=== PATIENT | male | born 1960 | race Caucasian/White ===

== ENCOUNTER 2016-12-28 20:33 | Emergency (ER) | payer BC ==
[2016-12-28 20:38] VITALS: TEMP 98; BMI 22.6
[2016-12-28 23:27] LABS: BASOPHIL 0.5 % (0-2.0); EOSINOPHIL 4.2 % (0-4.5); MCH 31.6 pg (25.7-33.7); MCHC 34.5 g/dl (32.0-35.9); MEAN CELL VOLUME 91.7 fl (80-96); MEAN PLT VOLUME 8.4 fl (7.5-11.1); NEUTROPHILS 45.3 % (42.8-82.8); PLATELET COUNT 207 K/MM3 (134-434); RDW 12.6 % (11.9-15.9); WHITE BLOOD COUNT 5.5 K/mm3 (4.0-10.0)
--- NOTE | 2016-12-28 23:43 | PDOC ---
History of Present Illness <Makayla Olivas - Last Filed: 12/29/16 00:52> - General History Source: Patient Exam Limitations: No Limitations <Vikki Zepeda - Last Filed: 12/29/16 01:52> - General Chief Complaint: Palpitations Stated Complaint: PALPITATION - History of Present Illness Initial Comments: 12/29/16 00:52 The patient is a 56 year old male, with a significant past medical history of hypertension, who presents to the emergency department with palpitations since noon. He reports feeling a fluttering sensation in his chest. He denies chest pain. He denies taking herbal supplements, drinking caffeine, or ingesting today. He reports having a normal stress test many years ago. He denies chest pain, shortness of breath, headache and dizziness. He denies fever, chills, nausea, vomit, diarrhea and constipation. He denies dysuria, frequency, urgency and hematuria. Allergies: NKDA Past surgical history: none reported Social history: denies tobacco use PCP - none (Makayla Olivas) Past History <Makayla Olivas - Last Filed: 12/29/16 00:52> - Past Medical History HTN: Yes - Suicide/Smoking/Psychosocial Hx Smoking History: Never smoked Have you smoked in the past 12 months: No Hx Alcohol Use: No Substance Use Type: None <Vikki Zepeda - Last Filed: 12/29/16 01:52> - Past Medical History Allergies/Adverse Reactions: Allergies Allergy/AdvReac Type Severity Reaction Status Date / Time No Known Allergies Allergy Verified 12/28/16 20:37 Home Medications: Ambulatory Orders Hydrochlorothiazide [Hctz -] 25 mg PO DAILY 05/09/15 Ibuprofen 600 mg PO Q6H PRN #15 tablet 05/09/15 Loratadine/Pseudoephedrine [Claritin-D 12 Hour Tab SA] 1 tab PO BID PRN #10 tab.er.12h 05/09/15 Review of Systems - Review of Systems Able to Perform ROS?: Yes <Makayla Olivas - Last Filed: 12/29/16 00:52> <Vikki Zepeda - Last Filed: 12/29/16 01:52> - Review of Systems Comments:: 12/29/16 00:53 GENERAL/CONSTITUTIONAL: No fever or chills. No weakness. HEAD, EYES, EARS, NOSE AND THROAT: No change in vision. No ear pain or discharge. No sore throat. CARDIOVASCULAR: (+) heart "flutter". No chest pain or shortness of breath. RESPIRATORY: No cough, wheezing, or hemoptysis. GASTROINTESTINAL: No nausea, vomiting, diarrhea or constipation. GENITOURINARY: No dysuria, frequency, or change in urination. MUSCULOSKELETAL: No joint or muscle swelling or pain. No neck or back pain. SKIN: No rash NEUROLOGIC: No headache, vertigo, loss of consciousness, or change in strength/ sensation. ENDOCRINE: No increased thirst. No abnormal weight change. HEMATOLOGIC/LYMPHATIC: No anemia, easy bleeding, or history of blood clots. ALLERGIC/IMMUNOLOGIC: No hives or skin allergy. (Makayla Olivas) *Physical Exam <Makayla Olivas - Last Filed: 12/29/16 00:52> <Vikki Zepeda - Last Filed: 12/29/16 01:52> - Vital Signs Last Vital Signs Temp Pulse Resp BP Pulse Ox 98 F 71 18 150/90 100 12/28/16 20:35 12/28/16 20:35 12/28/16 20:35 12/28/16 20:35 12/28/16 20:35 - Physical Exam Comments: 12/29/16 00:54 GENERAL: Awake, alert, and fully oriented, in no acute distress HEAD: No signs of trauma EYES: PERRLA, EOMI, sclera anicteric, conjunctiva clear ENT: Auricles normal inspection, hearing grossly normal, nares patent, oropharynx clear without exudates. Moist mucosa NECK: Normal ROM, supple, no lymphadenopathy, JVD, or masses LUNGS: Breath sounds equal, clear to auscultation bilaterally. No wheezes, and no crackles HEART: Regular rate and rhythm, normal S1 and S2, no murmurs, rubs or gallops ABDOMEN: Soft, nontender, normoactive bowel sounds. No guarding, no rebound. No masses EXTREMITIES: Normal range of motion, no edema. No clubbing or cyanosis. No cords , erythema, or tenderness NEUROLOGICAL: Cranial nerves II through XII grossly intact. Normal speech, normal gait SKIN: Warm, Dry, normal turgor, no rashes or lesions noted. (Makayla Olivas) Heart Score/ECG Review <Makayla Olivas - Last Filed: 12/29/16 00:52> #1 General ECG Interpretation: Sinus Rhythm, Normal Rate (49), Normal Intervals, No acute ischemic changes - QRS Widened: RBBB (no old ekg) <Vikki Zepeda - Last Filed: 12/29/16 01:52> - [place] Comment: 12/29/16 00:55 EKG was read by Dr. Zepeda at 20:55 Impression: Normal sinus rhythm with right bundle branch block. (Makayla Olivas ) ED Treatment Course - LABORATORY CBC & Chemistry Diagram: 12/28/16 23:20 12/28/16 23:20 <Makayla Olivas - Last Filed: 12/29/16 00:52> - LABORATORY CBC & Chemistry Diagram: 12/28/16 23:20 12/28/16 23:20 <Vikki Zepeda - Last Filed: 12/29/16 01:52> - ADDITIONAL ORDERS Additional order review: Laboratory Results 12/28/16 23:20 Sodium 140 Potassium 4.4 Chloride 101 Carbon Dioxide 31 Anion Gap 8 BUN 20 H D Creatinine 1.1 D Creat Clearance w eGFR > 60 Random Glucose 88 Calcium 9.7 Total Bilirubin 0.4 AST 25 D ALT 43 D Alkaline Phosphatase 74 Total Protein 7.7 Albumin 4.5 Lipase 384 12/28/16 23:20 RBC 4.27 MCV 91.7 MCHC 34.5 RDW 12.6 MPV 8.4 Neutrophils % 45.3 D Lymphocytes % 39.6 D Monocytes % 10.4 H Eosinophils % 4.2 Basophils % 0.5 Medical Decision Making <Makayla Olivas - Last Filed: 12/29/16 00:52> <Vikki Zepeda - Last Filed: 12/29/16 01:52> - Medical Decision Making 12/28/16 23:41 26 yo male with h/o Htn 9 on hctz 25) here with c/o sudden onset palpitations. started today at noon. states feel fluttery feeling in chest. no chest pain or sob. no mod factors. no leg swelling. no change to medication. no caffein or tea or other herbal meds. no f/c has had a stress test 3 yrs ago, normal. dr lockhart ( [employer]) . on exam awake alert lungs clear heart regular rosie, no mrg. abd soft nt nd. ext wwp no edema no calf tenderness. plan : differential thyroid abnormality, electrolyte abnml, dysrthymia, plan tele ekg labs reassess. (Vikki Zepeda) *DC/Admit/Observation/Transfer <Makayla Olivas - Last Filed: 12/29/16 00:52> - Discharge Dispostion Admit: No <Vikki Zepeda - Last Filed: 12/29/16 01:52> Diagnosis at time of Disposition: Palpitations - Discharge Dispostion Disposition: HOME Condition at time of disposition: Improved - Referrals Referrals: Elias Pereira MD [Staff Physician] - - Patient Instructions Printed Discharge Instructions: DI for Arrhythmias, DI for Palpitations Additional Instructions: follow up with your [facility]. you can also call dr pereira to schedule follow up this week. return for any problems or concerns. - Attestations Scribe Attestion: 12/29/16 00:54 Documentation prepared by Makayla Olivas, acting as medical historian for Vikki Zepeda MD, (Makayla Olivas)
[2016-12-29 00:02] LABS: ALBUMIN 4.5 g/dl (3.4-5.0); ALK PHOS 74 U/L (45-117); ANION GAP 8 (8-16); BILIRUBIN,TOTAL 0.4 mg/dL (0.2-1.0); CALCIUM 9.7 mg/dL (8.5-10.1); CO2 31 mmol/L (21-32); CREATININE 1.1 mg/dL (0.7-1.3); GLUCOSE,RANDOM 88 mg/dL (74-106); SGOT/AST 25 U/L (15-37); SGPT/ALT 43 U/L (12-78); TOT PROT 7.7 g/dl (6.4-8.2)
[2016-12-29 02:13] VITALS: BP 131/78; PULSE 51
--- NOTE | 2016-12-29 21:03 | EKG ---
Test Reason : Blood Pressure : / mmHG Vent. Rate : 049 BPM Atrial Rate : 049 BPM P-R Int : 188 ms QRS Dur : 154 ms QT Int : 494 ms P-R-T Axes : 029 -31 006 degrees QTc Int : 446 ms SINUS BRADYCARDIA LEFT AXIS DEVIATION LAFB RIGHT BUNDLE BRANCH BLOCK MODERATE VOLTAGE CRITERIA FOR LVH, MAY BE NORMAL VARIANT ABNORMAL ECG NO PREVIOUS ECGS AVAILABLE REPEAT EKG IF CLINICALLY INDICATED Confirmed by GORDON GORE MD ([id number]) on 12/29/2016 9:03:07 PM Referred By: Confirmed By:GORDON GORE MD
== END 2016-12-29 02:13 | disposition home or self-care (01) ==
LOC: JER 20:33
DX: R00.2 Palpitations (principal)
CPT/HCPCS: 36415; 80053; 83690; 85025; 93005; 93010; 99284-25

== ENCOUNTER 2018-04-25 04:02 | Observation (INO) | payer BC ==
--- NOTE | 2018-04-25 04:19 | PDOC ---
Attending Attestation - Resident Resident Name: JagdishmackShayEnrico - ED Attending Attestation I have performed the following: I have examined & evaluated the patient, The case was reviewed & discussed with the resident, I agree w/resident's findings & plan - HPI HPI: 04/25/18 04:22 Pt came after a syncope episode that happened today, he felt lightheaded prior to this happening. - Physicial Exam PE: 04/25/18 05:37 Agree with resident exam - Medical Decision Making 04/25/18 05:37 CBC normal; INR normal 04/25/18 06:19 Pt will be admitted to tele. Labs first set normal; CXR normal; EKG unchanged from previous. He will be admitted for obs, as he passed out today for a few moments. Heart Score/ECG Review - ECG Intrepretation Rhythm: Regular Rhythm - Orgas Orgas: Normal - P and RI Delta Wave(s) Present: No WPW: No - QRS Widened: RBBB Poor R Wave Progression: No - ST and T Early Repolarization: No Non Specific ST-T Wave changes: No Flattened T Waves: No Prolonged Q-T Interval: No - ECG Impressions Normal ECG: No Non-specific ST Elevation: No Ischemic Changes: No Bradycardia: No Torsades suma Pointes: No WPW: No
--- NOTE | 2018-04-25 04:30 | PDOC ---
History of Present Illness - General Chief Complaint: Syncope/Near Syncope Stated Complaint: SYNCOPE Time Seen by Provider: 04/25/18 04:20 - History of Present Illness Initial Comments: 04/25/18 04:26 Mr. Mojica is a 57 yo male w/ pmh of HTN who presents for evaluation after syncopal episode this morning at approximately 0245. Patient reports he got up to urinate and became lightheaded when he returned to bed. Per who is with him he lost consciousness and fell onto the bed for approximately 20 seconds. Mr. Mojica also complains of right eye redness for the past day. The patient denies chest pain, shortness of breath, headache and dizziness. Denies fever, chills, nausea, vomit, diarrhea and constipation. Denies dysuria, frequency, urgency and hematuria. Past History - Past Medical History Allergies/Adverse Reactions: Allergies Allergy/AdvReac Type Severity Reaction Status Date / Time No Known Allergies Allergy Verified 04/25/18 04:33 Home Medications: Ambulatory Orders Hydrochlorothiazide [Hctz -] 25 mg PO DAILY 05/09/15 Ranitidine [Zantac -] 150 mg PO BID 04/25/18 COPD: No HTN: Yes - Suicide/Smoking/Psychosocial Hx Smoking History: Never smoked Have you smoked in the past 12 months: No Hx Alcohol Use: No Substance Use Type: None Review of Systems - Review of Systems Comments:: 04/25/18 04:27 GENERAL/CONSTITUTIONAL: +Syncopal episode as described. No fever or chills. No weakness. HEAD, EYES, EARS, NOSE AND THROAT: No change in vision. No ear pain or discharge. No sore throat. CARDIOVASCULAR: No chest pain or shortness of breath RESPIRATORY: No cough, wheezing, or hemoptysis. GASTROINTESTINAL: No nausea, vomiting, diarrhea or constipation. GENITOURINARY: No dysuria, frequency, or change in urination. MUSCULOSKELETAL: No joint or muscle swelling or pain. No neck or back pain. SKIN: No rash NEUROLOGIC: No headache, vertigo, loss of consciousness, or change in strength/ sensation. ENDOCRINE: No increased thirst. No abnormal weight change HEMATOLOGIC/LYMPHATIC: No anemia, easy bleeding, or history of blood clots. ALLERGIC/IMMUNOLOGIC: No hives or skin allergy. *Physical Exam - Physical Exam Comments: 04/25/18 04:27 GENERAL: Awake, alert, and fully oriented, in no acute distress HEAD: No signs of trauma, normocephalic, atraumatic EYES: +R eye significant for conjunctivitis. PERRLA, EOMI, sclera anicteric ENT: Auricles normal inspection, hearing grossly normal, nares patent, oropharynx clear without exudates. Moist mucosa NECK: Normal ROM, supple, no lymphadenopathy, JVD, or masses LUNGS: No distress, speaks full sentences, clear to auscultation bilaterally HEART: Regular rate and rhythm, normal S1 and S2, no murmurs, rubs or gallops, peripheral pulses normal and equal bilaterally. ABDOMEN: Soft, nontender, normoactive bowel sounds. No guarding, no rebound. No masses EXTREMITIES: Normal inspection, Normal range of motion, no edema. No clubbing or cyanosis. NEUROLOGICAL: Cranial nerves II through XII grossly intact. Normal speech, normal gait, no focal sensorimotor deficits SKIN: Warm, Dry, normal turgor, no rashes or lesions noted. Heart Score/ECG Review - History History: Highly suspicious - Electrocardiogram EKG: Non specific repolarization disturbance - Age Age: 45-65 - Risk Factors Risk Factors Heart Score: Yes Hx Hypertension Based on the list above the patient has:: 1-2 risk factors - Troponin Troponin: </= normal limit - Score Heart Score - Total: 5 ED Treatment Course - LABORATORY CBC & Chemistry Diagram: 04/25/18 04:55 04/25/18 04:55 Medical Decision Making - Medical Decision Making 04/25/18 06:02 Mr. Mojica is a 57 yo male w/ pmh as described who presents for evaluation following syncopal episode earlier today. Patient currently at baseline per . Evaluation for cause of syncopal episode investigated with electrolyte and infectious evaluation as well as EKG and cardiac monitoring. Labs grossly wnl as below. EKG Significant for left axis deviation w/ RBBB (both seen on previous EKG) - possible bifascicular block. CXR negative. HEART score 5. Will admit patient for observation and further workup of syncopal episode. Laboratory Results - last 24 hr 04/25/18 04/25/18 04/25/18 04:55 04:55 04:55 WBC 5.9 RBC 4.37 Hgb 13.4 Hct 40.7 MCV 93.0 MCH 30.7 MCHC 33.0 RDW 13.2 Plt Count 212 MPV 7.9 Absolute Neuts (auto) 3.9 Neutrophils % 66.0 D Lymphocytes % 20.7 D Monocytes % 10.6 H Eosinophils % 2.3 Basophils % 0.4 Nucleated RBC % 0 PT with INR 11.70 INR 0.99 Sodium 138 Potassium 3.4 L Chloride 103 Carbon Dioxide 31 Anion Gap 5 L BUN 22 H Creatinine 1.2 Creat Clearance w eGFR > 60 Random Glucose 97 Calcium 8.6 Total Bilirubin 0.4 AST 23 ALT 36 Alkaline Phosphatase 70 Creatine Kinase 168 Troponin I < 0.02 Total Protein 7.3 Albumin 4.0 *DC/Admit/Observation/Transfer Diagnosis at time of Disposition: Syncope and collapse, Right bundle branch block - Discharge Dispostion Condition at time of disposition: Fair Decision to Admit order: Yes - Referrals - Patient Instructions - Post Discharge Activity
[2018-04-25 04:50] VITALS: BMI 23.3
[2018-04-25 05:09] LABS: BASO % 0.4 % (0-2.0); EOS % 2.3 % (0-4.5); HEMATOCRIT 40.7 % (35.4-49); HEMOGLOBIN 13.4 GM/dL (11.7-16.9); LYMPH % 20.7 % (8-40); MCH 30.7 pg (25.7-33.7); MEAN PLT VOLUME 7.9 fl (7.5-11.1); MONO % 10.6 % (3.8-10.2); PLATELET COUNT 212 K/MM3 (134-434); RBC 4.37 M/mm3 (4.00-5.60); RDW 13.2 % (11.9-15.9); WHITE BLOOD COUNT 5.9 K/mm3 (4.0-10.0)
[2018-04-25 05:19] LABS: INR 0.99 (0.83-1.09); PROTHROMBIN TIME (PATIENT) 11.7 SEC (9.7-13.0)
[2018-04-25 05:55] LABS: ALK PHOS 70 U/L (45-117); ANION GAP 5 MMOL/L (8-16); BILIRUBIN,TOTAL 0.4 mg/dL (0.2-1); BLOOD UREA NITROGEN 22 mg/dL (7-18); CALCIUM 8.6 mg/dL (8.5-10.1); CHLORIDE 103 mmol/L (98-107); CO2 31 mmol/L (21-32); CREATININE 1.2 mg/dL (0.55-1.3); GLUCOSE,RANDOM 97 mg/dL (74-106); POTASSIUM 3.4 mmol/L (3.5-5.1); SGOT/AST 23 U/L (15-37); SGPT/ALT 36 U/L (13-61); SODIUM 138 mmol/L (136-145); TOT PROT 7.3 g/dl (6.4-8.2)
[2018-04-25] MEDS ORDERED: SODIUM CHLORIDE 1,000 ML IV STA (09:09)
--- NOTE | 2018-04-25 09:17 | HP ---
Admitting History and Physical - Primary Care Physician PCP: None - Admission Chief Complaint: Collapse History of Present Illness: Pt is a 57 yo M with PMHx of seasonal allergies, HTN, previous syncope, presenting with collapse after going to the bathroom today around 2.50am. Pt reported that he had finished urinating, was looking in the mirror at his R red eye, when he suddenly felt cold and clammy and returned to his and sat in bed. He told the he was about to pass out, then he passed out for about 15secs, recovered for about a minute then passed out for another 15 secs before the ambulance was called. There were no jerky movements, no rolling of the eyes , no fecal or urinary incontinence. No hx of seizures in past, and no weakness of any part of his body. Pt denies chest pain, SOB, palpitations, dizziness or spinning of the room. Pt describes recurrent fluttering of the heart or "gas" when he exercises, and thinks it worsens when he uses the HCTZ. Last month, he was in [facility] for "gas" and discharged on ranitidine and HCTZ. He said all the tests were normal but could not verify what exactly was done. Pt denies fever, poor intake, n/v/or diarrhea. He was diagnosed with HTN about 3 years ago and has been on HCTZ inconsistently for about 2 years (it appears last use was about 1 week ago) because of what he describes as "flutter" when he is on it. His last follow up with a PCP was about 2 years ago. Pt reports having similar symptoms in past (he had gastroenteritis per ) for which he was treated with fluids. Pt noticed redness of R eye yesterday which was initially painful and now producing clear discharge. Denies itching of the eye or nasal congestion. Had a sorethroat 1 week ago that resolved spontaneously with no fevers or chills. Pt is concerned about the red eye and says he has not had eye redness in the past. Per records from [facility], pt was seen on 03/27/[address] Peri Zavala for palpitations and found to have HTN 168/100 and was dcd on HCTZ. EKG similar to today's Blood work similar to today's, TSH 1.770, negative trop. No ECHO noted. ED course: EKG 55bpm, sinus bradycardia with RBBB and Laxis deviation (bifascicular block) , normal MT interval, no DHAVAL, QTC-443 Trop <0.02 x1, CK-168, CKI-0.5, CKMB <1.0, K-3.4, BUN/cr-22-1.2 CXR; No acute pathol History Source: Patient, Family Member ( for the time he syncopized) Limitations to Obtaining History: No Limitations - Past Medical History CARBONATOR: Yes: Syncope Cardiovascular: Yes: HTN, Other (palpitations) ENT: Yes: Other (seasonal allergies) - Smoking History Smoking history: Never smoked Have you smoked in the past 12 months: No - Alcohol/Substance Use Hx Alcohol Use: No - Social History Usual Living Arrangement: Yes: With Spouse ADL: Independent 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 [employer] 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 denies: Chills, Fever Eyes: reports: Eye Pain (R eye). denies: Blurred Vision, Recent Change in Vision HENT: denies: Difficult Swallowing, Ear Pain, Throat Pain Cardiovascular: denies: Chest Pain, Palpitations, Shortness of Breath Respiratory: denies: Cough, Exercise Intolerance, Orthopnea, PND, SOB on Exertion, Wheezing Gastrointestinal: reports: No Symptoms Genitourinary: reports: No Symptoms Musculoskeletal: reports: No Symptoms Neurological: denies: Change in LOC, Change in Speech, Confusion, Dizziness, Headache, Numbness, Parasthesia, Seizure, Tremors, Unsteady Gait Physical Examination Vital Signs: Vital Signs Temperature 98.1 F 04/25/18 07:12 Pulse Rate 60 04/25/18 07:12 Respiratory Rate 17 04/25/18 07:12 Blood Pressure 132/77 01/14/19 07:12 O2 Sat by Pulse Oximetry (%) 100 04/25/18 07:12 Findings/Remarks: Gen: Pt is awake, alert and oriented x3, not in any acute painful/respiratory distress Eyes: Red R eye, no obvious discharge , PERRLA, EOMI ENT:Dry mucous membranes, no exudates Neck: No JVD CVS: S1, S2, no mrg Resp: Lungs CTA b/l, no wheezes, rhonchi or crackles Neuro: AA0x3, no facial or tongue asymmetry, 5/5 strength- extension, flexion, abduction, adduction b/l UE/LE, normal tone, normal sensation, no tremors, normal gait Extremities: No pedal edema Labs: CBC, BMP 04/25/18 04:55 04/25/18 04:55 Assessment/Plan Orthostatic BP- Lying down-150/80, standing 140/70 Pt is a 57 yo M with PMHx of seasonal allergies, HTN, previous syncope, presenting with collapse after going to the bathroom today around 2.50am #Syncope Could be of mixed etiology Could be vasovagal, as it happened after urinating, Pt reports being aware , with duration up to 15secs pt was however orthostatic in the ED- lying down-150/80, standing 140/70, has been on HCTZ, unclear how compliant he has been RBBB in past, EKG with sinus rosie and bifascicular block, no clear cardiovascular work up in past NS- 1L bolus, then 100mls/hr Echo stat- R/O structural heart dx Initial cardiac exam --ve, repeat Repeat orthostatic BP after fluids May need change of antihypertensive Needs PCP follow up, D/W patient Replete K Follow Mg #HTN Hold HCTZ at this time, pt is being rehydrated Consider changing to amlodipine #Red eye on R Pt used over the counter eye drops Ophthalmology consult #FEN NS@100/hr Monitor lytes, replete as needed Sodium restricted diet #PPx Lovenox 40 daily sq #Dispo Tele obs Visit type - Emergency Visit Emergency Visit: Yes ED Registration Date: 04/25/18 Care time: The patient presented to the Emergency Department on the above date and was hospitalized for further evaluation of their emergent condition. - New Patient This patient is new to me today: Yes Date on this admission: 04/25/18 - Critical Care Critical Care patient: No
[2018-04-25] MEDS ORDERED: POTASSIUM CHLORIDE TABS 20 MEQ TABLET.ER (FP) PO ONE ×2 (09:23→09:30)
[2018-04-25] MEDS ORDERED: ENOXAPARIN NA (PORCINE) 40 MG/0.4 ML DISP.SYRIN SQ ONE (09:23)
[2018-04-25] MEDS: ENOXAPARIN NA (PORCINE) 40 MG/0.4 ML DISP.SYRIN SQ SCH (09:24)
[2018-04-25] MEDS ORDERED: SODIUM CHLORIDE 1,000 ML IV SCH ×2 (09:45→17:21)
--- NOTE | 2018-04-25 09:49 | EKG ---
Test Reason : Blood Pressure : / mmHG Vent. Rate : 055 BPM Atrial Rate : 055 BPM P-R Int : 186 ms QRS Dur : 166 ms QT Int : 464 ms P-R-T Axes : 046 -32 025 degrees QTc Int : 443 ms SINUS BRADYCARDIA LEFT AXIS DEVIATION RIGHT BUNDLE BRANCH BLOCK MINIMAL VOLTAGE CRITERIA FOR LVH, MAY BE NORMAL VARIANT ABNORMAL ECG WHEN COMPARED WITH ECG OF 28-JUN-2017 03:30, NO SIGNIFICANT CHANGE WAS FOUND Confirmed by JANUSZ YOUSSEF, MAGUI ([id number]) on 04/25/2018 9:48:43 AM Referred By: Confirmed By:MAGUI BOUDREAUX MD
[2018-04-25 09:52] LABS: MAGNESIUM 2.5 mg/dL (1.8-2.4); PHOSPHOROUS 3.2 mg/dL (2.5-4.9)
[2018-04-25 12:14] LABS: MAGNESIUM 2.5 mg/dL (1.8-2.4); PHOSPHOROUS 2.6 mg/dL (2.5-4.9)
--- NOTE | 2018-04-25 13:54 | ECHO ---
Name: CAROLINA MUSHTAQ Exam:Adult Echocardiogram Study Date: 04/25/2018 11:35 AM Age: 57 yrs Height: 69 in Weight: 158 lb BSA: 1.9 m2 MMode/2D Measurements & Calculations IVSd: 1.0 cm Ao root diam: 3.7 cm LVIDd: 4.8 cm LA dimension: 3.6 cm LVIDs: 2.5 cm ACS: 2.3 cm LVPWd: 0.90 cm IVSs: 1.4 cm LVPWs: 1.3 cm EDV(Teich): 110.1 ml ESV(Teich): 23.4 ml Doppler Measurements & Calculations MV E max desmond: 71.9 cm/sec AI P1/2t: 756.0 msec MV A max desmond: 54.0 cm/sec MV E/A: 1.3 AI max desmond: 347.5 cm/sec TR max desmond: 150.4 cm/sec AI max P.3 mmHg TR max P.0 mmHg AI dec slope: 134.6 cm/sec2 Med Peak E' Desmond: 5.8 cm/sec Med E/e': 12.5 Lat Peak E' Desmond: 7.9 cm/sec Lat E/e': 9.1 Procedure A complete two-dimensional transthoracic echocardiogram was performed (2D, M-mode, Doppler and color flow Doppler). Technically limited study. Left Ventricle The left ventricle is normal in size. Left ventricular systolic function is normal. Ejection Fraction = 65- 70%. Diastolic dysfunction, Grade II (pseudonormalization pattern). Ratio E/E'= 17. No regional wall motion abnormalities noted. Right Ventricle The right ventricle is normal size. The right ventricular systolic function is normal. Atria The left atrial size is normal. Right atrial size is normal. Mitral Valve The mitral valve is normal in structure and function. There is mild mitral regurgitation. Tricuspid Valve The tricuspid valve is normal in structure and function. No tricuspid regurgitation. Aortic Valve The aortic valve is normal in structure and function. Moderate aortic regurgitation. There is an ecce ntric jet of aortic insufficiency directed against the anterior mitral leaflet. Pulmonic Valve The pulmonic valve is not well visualized. Great Vessels The aortic root is normal size. Pericardium/Pleura There is no pericardial effusion. Interpretation Summary The left ventricle is normal in size. Left ventricular systolic function is normal. No regional wall motion abnormalities noted. Ejection Fraction = 65-70%. Diastolic dysfunction, Grade II (pseudonormalization pattern). Ratio E/E'= 17 c/w elevated filling pressure The right ventricular systolic function is normal. The left atrial size is normal. Right atrial size is normal. There is mild mitral regurgitation. Moderate aortic regurgitation. There is an eccentric jet of aortic insufficiency directed against the anterior mitral leaflet. There is no pericardial effusion. Previous study is not available for comparison Elias Pereira MD 04/25/2018 01:53 PM
[2018-04-25] MEDS ORDERED: amLODIPine BESYLATE 5 MG TABLET (FP) ONE (15:11)
[2018-04-25] MEDS: amLODIPine BESYLATE 5 MG TABLET (FP) PO SCH (15:16)
--- NOTE | 2018-04-25 17:34 | PN ---
Teaching Attending Note Name of Resident: Stephanie Lopez ATTENDING PHYSICIAN STATEMENT I saw and evaluated the patient. I reviewed the resident's note and discussed the case with the resident. I agree with the resident's findings and plan as documented. SUBJECTIVE: CC: syncope HPI; 57 y/o man with h/o HTN, GERD, and bifasciular block, and known valve regurgitation who presented with syncope. last night after going to [place] for urination , he felt sweaty and clammy and had a brief loss of consciousness after lying down on bed. LOC lasted 2 seconds then he was oriented immediately after that. he denies CP, papitations, OSB, dizziness or any other sx before or after event. he had a similar episode 15 yrs ago after consumption of large amount of alcohol. NOw sober with no alcohol use fo [facility]. he was placed on HCTZ for HTn and he reports frequent urination . he has been using it daily His PCP is a rail walker in the [place], and he is willing to establish care with some one local after he moved to [place]. he is aware of having a bundle branch block and a valve regurgitation ( does not remember which vallve ) . He reports pink eye with yellow discharge since ysterday. No eye pain, o change in vision , no REDDY. OBJECTIVE: NAD, AAOx3. MMM ( has been on IVF since 9 am ) HEENT: no facial droop, R eye with injected conjuctiva and no discharge . EOMi, round euap pupils, reactive to light. no JVD CV: RRR, no MRG , no JVD Lungs: CTAB Abd: soft, NT, Nd < NL BS ext : no edema , no erythema or tenderness. Neuro : EOMI, round equal pupils, reactive to light, no facial droop, tongue and uvula at mid night . strength 5/5 in upper nad lpwer extremities proximally , and distally. sensation to light Nl. 2+ knee jerk and biceps b/l ASSESSMENT AND PLAN: 57 y/o man with h/o HTN, GERD, and bifasciular block, and known valve regurgitation who presented with syncope. 1- Syncope: likely orthostatic hypotension in the setting of being on HCTZ ( + orhtostatics per dr. Lopez exam) . micturation syncope is in DDx. of course arrhythmias are in DDx , but less likelly. EKG with sinus rhythm, bifascisular block with no change from prior. - echo obrained with diastoic dysfunction nad Mod aortic regurg. - cont tele monitoring. HR in 60s - IVF for now - dc HCTZ and start Norvasc - f/u with card for AR . 2- Acute conjunctivitis: start abx drops to both eyes x 5 days 3- HTn: Norvasc . Dispo : if no abn on tele , dc in am . Refer to resident clinc and to Card for follow up.
[2018-04-25] MEDS: POLYMYXIN B SULFATE/TMP 10 ML OPHTHALMIC SOLUTION OU SCH (21:29)
[2018-04-26] MEDS: POLYMYXIN B SULFATE/TMP 10 ML OPHTHALMIC SOLUTION OU SCH (06:15)
[2018-04-26 08:20] LABS: MAGNESIUM 2.4 mg/dL (1.8-2.4); PHOSPHOROUS 2.3 mg/dL (2.5-4.9)
[2018-04-26 08:23] VITALS: BP 155/78; PULSE 57; TEMP 97.7
[2018-04-26] MEDS: amLODIPine BESYLATE 5 MG TABLET (FP) PO SCH (09:02)
[2018-04-26] MEDS: ENOXAPARIN NA (PORCINE) 40 MG/0.4 ML DISP.SYRIN SQ SCH (09:05)
[2018-04-26] MEDS ORDERED: RANITIDINE HCL 150 MG TABLET (FP) PO SCH (10:00)
--- NOTE | 2018-04-26 14:52 | DS ---
Physical Exam: SUBJECTIVE: Patient seen and examined at bedside. No acute events overnight. OBJECTIVE: Vital Signs Period Temp Pulse Resp BP Sys/Robison Pulse Ox Last 24 Hr 97.7 F-98.9 F 57-69 16-20 129-162/68-93 100-100 PHYSICAL EXAM Pt was discharged prior to my exam. LABS Laboratory Results - last 24 hr 04/26/18 04/26/18 06:45 06:45 Hemoglobin A1c % 5.6 Phosphorus 2.3 L Magnesium 2.4 TSH 2.79 HOSPITAL COURSE: Date of Admission:04/25/18 IMAGING: * ECHO: EF 65-70%. Diastolic dysfxn, Grade II. Mild MR. Mod AR. Eccentric jet of aortic insufficiency directed against the anterior mitral leaflet. 57 y/o man with h/o HTN, GERD, and bifasciular block, and known valve regurgitation presented after a syncopal episode. Pt was further evaluated and an echo was done that showed EF of 65-70%, diastolic dysfxn, grade II, mild MR, mod AR, and aortic insufficiency. Additionally, pt's diuretic was held and was started on Norvasc. Throughout hospital stay, pt was asymptomatic. Pt was subsequently discharged home with recommendation to follow up with his PCP and trim die maker for further evaluation of his echo findings. He was also advised to discontinue taking HCTZ and instead take Amlodipine. Additionally, pt was found to have conjunctivitis. Pt was given Polytrim eye drops. Date of Discharge: 04/26/18 Minutes to complete discharge: 40 Discharge Summary Reason For Visit: SYNCOPE AND COLLAPSE,RIGHT BUNDLE BRANCH BLOCK Condition: Improved - Instructions Diet, Activity, Other Instructions: You were admitted to the hospital for a syncopal episode (losing consciousness) . This was likely due, in part, to the use of diuretics, which made you dehydrated. In the hospital, we held your hydrochlorothiazide, and instead, started you on amlodipine 5mg (norvasc) for blood pressure. In addition, we checked your heart for any cardiac causes of losing consciousness, which we did during our 24 hour monitoring or on your echocardiogram. On the echocardiogram, we noticed you may have an abnormality in one of the heart valves, which you should see a trim die maker for within 1 month of discharge We also gave you antibiotic eyedrops for pink eye in your right eye. 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 Check your blood pressure every day. Please do not take hydrochlorothiazide until you see your primary care physician and have a discussion about resuming it. 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 Referrals 1. Please see your primary care physician within 1 week to refill your medications and discuss use of diuretics (hydrochlorothiazide) If you do not have a primary care physician, make an appointment within 1 week at [facility], located at: [address] [place] [address], [address] [place] [id number] 2. Please make an appointment with your trim die maker for evaluation of aortic regurgitation. If you do not have one, we have provided information for the trim die maker Dr. Abraham in the discharge packet. If you experience any further syncopal episodes, palpitations, chest pain or shortness of breath, please return to the emergency room immediately. Referrals: Dl Hernandez MD [Staff Physician] - 1 Week Colton Abraham MD [Staff Physician] - 1 Month Disposition: HOME - Home Medications Comprehensive Discharge Medication List: Ambulatory Orders Ranitidine [Zantac -] 150 mg PO BID 04/25/18 Amlodipine Besylate [Norvasc -] 5 mg PO DAILY #14 tablet 04/26/18 Polymyxin B Sulfate/Tmp [Polytrim Opthalmic Solution -] 1 drop OU Q4HWA #1 bottle 04/26/18 This patient is new to me today: Yes Date on this admission: 04/26/18 Emergency Visit: Yes ED Registration Date: 04/25/18 Care time: The patient presented to the Emergency Department on the above date and was hospitalized for further evaluation of their emergent condition. Critical Care patient: No - Discharge Referral Referred to [facility] Med P.C.: No
--- NOTE | 2018-04-26 15:55 | PN ---
Teaching Attending Note Name of Resident: Diana Rubio ATTENDING PHYSICIAN STATEMENT I saw and evaluated the patient. I reviewed the resident's note and discussed the case with the resident. I agree with the resident's findings and plan as documented. SUBJECTIVE: No fever or chills . No abd pain. no CP , no palpitations . no events over night OBJECTIVE: NAD, improved injection in R eye. clear L conjunctiva CV: RRR, no MRG , no JVD Lungs: CTAB ext : no edema , no erythema or tenderness. ASSESSMENT AND PLAN: 57 y/o man with h/o HTN, GERD, and bifasciular block, and known valve regurgitation who presented with syncope. 1- Syncope: likely orthostatic hypotension with HCTZ - dc IVF - norvasc in place of HCTZ. - f/u with card for mod aortic regurg, and bifascicular block ( old ) 2- Acute conjunctivitis: cont abx drops x 5 days 3- HTn: Norvasc . Dispo dc home today
== END 2018-04-26 11:00 | disposition home or self-care (01) ==
LOC: JER 04:02 → JERBED 06:04 → INTOOBSV 06:04 → J4W 18:38
PROVIDERS: ADMIT Internal Medicine; ATTEND Internal Medicine
PROC: 3E0337Z Introduction of Electrolytic and Water Balance Substance into Peripheral Vein, Percutaneous Approach (ICD-10-PCS; principal; 2018-04-25)
DX: R55 Syncope and collapse (principal); I45.10 Unspecified right bundle-branch block; I10 Essential (primary) hypertension; H10.33 Unspecified acute conjunctivitis, bilateral; K21.9 Gastro-esophageal reflux disease without esophagitis; I35.1 Nonrheumatic aortic (valve) insufficiency
CPT/HCPCS: 36415; 71045-TC-FY; 80053; 82550; 82553; 83036; 83735; 84100; 84443; 84484; 85025; 85610; 93005; 93010; 93306-TC; 99283-25; G0378; J7030